=== PATIENT | female | born 2000 | race Caucasian/White ===

== ENCOUNTER 2024-09-10 06:25 | Inpatient (IN) ==
[2024-09-10] MEDS ORDERED: REGLAN INJ 10 MG VIAL IVP PRN (06:53)
[2024-09-10] MEDS ORDERED: NUBAIN INJ 20 MG AMP IVP PRN (06:53)
[2024-09-10] MEDS ORDERED: ZOFRAN INJ 4 MG VIAL IVP PRN (06:53)
[2024-09-10] MEDS: D5 1/2 NS 1,000 ML 1,000 ML IV SCH (07:00)
--- NOTE | 2024-09-10 07:21 | DR.OB ---
OB QUICK NOTE Assessment/Plan (1) Elective induction of labor planned: Assessment/Plan: L&D 09/10/24 at 7:20am S-No complaint. O-Afebrile,VSS JFR=571 with good LTV, +accel, no decel. CTX=none CVX=1cm/50%/-1/VTX AROM with clear fluid. IUPC and FSE placed. A-IUP at 39 2/7 weeks for induction P-Begin pitocin induction Anticipate
[2024-09-10] MEDS: OXYTOCIN 20 UNIT/1,000 ML-NS 20 UNIT/1,000 ML PLAST..BAG IV PRN (07:30)
[2024-09-10] MEDS: D5 1/2 NS 1,000 ML 1,000 ML IV ONE (07:50)
[2024-09-10] MEDS: PITOCIN ONE (07:51)
[2024-09-10] MEDS: LR 1,000 ML IV 1,000 ML IV ONE (09:39)
[2024-09-10] MEDS ORDERED: XYLOCAINE 1 % (PLAIN) ONE (10:11)
[2024-09-10] MEDS: NAROPIN EPIDURAL 0.2% 100 ML ONE (10:21)
[2024-09-10] MEDS: FENTANYL VIAL INJ 100 mcg ONE ×2 (10:21)
--- NOTE | 2024-09-10 12:07 | DR.OB ---
OB QUICK NOTE Assessment/Plan (1) Elective induction of labor planned: Assessment/Plan: L&D 09/10/24 at 12:05pm Pitocin=18mu/min. S-No complaint. s/p epidural. IUPC not picking up CTX well. O-Afebrile,VSS HDH=235 with good LTV, +accel, no decel. CTX=q 1 1/2 to 2 min., about 45-50mmHg CVX=3cm/90%/-1/VTX IUPC replaced. A-IUP at 39 2/7 weeks for induction P-Cont. pitocin induction Anticipate
--- NOTE | 2024-09-10 16:52 | DR.OB ---
OB QUICK NOTE Assessment/Plan (1) Elective induction of labor planned: Assessment/Plan: L&D 09/10/24 at 4:45pm Pitocin=20mu/min. S-No complaint. O-Afebrile,VSS RWX=532 with good LTV, +accel, no decel. except occasional mild variables. CTX=q 1 1/2 min., about 50-60mmHg CVX=6cm/90%/-1 A-IUP at 39 2/7 weeks for induction P-Cont. pitocin induction Will recheck CVX in about one hour. If dilation arrested, consider C/S.
[2024-09-10] MEDS: BETADINE SOLN ONE (19:15)
[2024-09-10] MEDS: PITOCIN IVP ONE (19:38)
[2024-09-10] MEDS ORDERED: MOTRIN TAB 800 MG PO PRN (19:48)
--- NOTE | 2024-09-10 19:48 | DR.OB ---
OB QUICK NOTE Assessment/Plan (1) Elective induction of labor planned: Assessment/Plan: Delivery Note [facility] 09/10/24 at 7:45PM Patient complete and pushing. Mother and baby stable. Head delivered over intact perineum. Nuchal cord x 1 reduced. Nose and mouth bulb suctioned. Body delivered over intact perineum. Cord clamped x 2 and cut. handed to attendant. Cord sent for gases. Placenta delivered spontaneously / intact / 3 vessel cord. No CVX / vaginal / perineal tears noted. Viable male infant delivered by , VTX/OA, wt=6'4" and 8/9, stable to NBN. Mother stable to RR. WHY=370pa.
[2024-09-10] MEDS ORDERED: AMBIEN PO PRN (20:51)
[2024-09-10] MEDS ORDERED: MILK OF MAGNESIA PO PRN (20:51)
[2024-09-10] MEDS: ADACEL or BOOSTRIX TDaP VACCINE IM ONE (21:35)
[2024-09-10] MEDS: OXYTOCIN 20 UNIT/1,000 ML-NS 20 UNIT/1,000 ML PLAST..BAG IV SCH (21:46)
[2024-09-11] MEDS: MOTRIN TAB 800 MG PO PRN (01:38)
[2024-09-11 04:56] LABS: HEMATOCRIT 27.6 % (36.0-47.0); HEMOGLOBIN 9.2 g/dL (12.0-16.0)
[2024-09-11] MEDS: PROTONIX TAB 40 MG PO SCH (08:14)
[2024-09-11] MEDS: PRENATAL PLUS PO SCH (08:14)
[2024-09-11] MEDS: DERMOPLAST PAIN RELIEF SPRAY TOP PRN (08:15)
[2024-09-12 07:33] VITALS: BP 108/61; PULSE 88; RESP 16; TEMP 97.4; O2SAT 97
== END 2024-09-12 10:55 | disposition home or self-care (01) | DRG 807 ==
LOC: LD 06:25 → MED/SURG 20:52
PROVIDERS: ADMIT Specialist; ATTEND Specialist
DX: Z3A.39 39 weeks gestation of pregnancy; O99.613 Diseases of the digestive system complicating pregnancy, third trimester; K21.9 Gastro-esophageal reflux disease without esophagitis; Z37.0 Single live birth